=== PATIENT | female | born 1950 | race Caucasian/White ===

== ENCOUNTER 2017-07-14 08:00 | Day surgery (SDC) | payer OTHER ==
[2017-07-08 11:45] VITALS: BMI 23.6
[2017-07-14] MEDS ORDERED: PROPOFOL 20 ML ONE (08:18)
[2017-07-14 09:39] VITALS: TEMP 97.7
[2017-07-14 10:13] VITALS: BP 122/71; PULSE 64
--- NOTE | 2017-07-19 13:06 | PATH ---
Surgical Pathology Report Patient Name: CAROLYN LONDONO [facility] Rec. #: [id number] /Age/Gender: 1950 (Age: 66) / F Account: [id number] Location: [facility] Taken: 07/14/2017 Received: 07/14/2017 Reported: 07/19/2017 Physicians: Farhan Harrington M.D. Specimen(s) Received A: BX PROXIMAL RIGHT COLON B: BX RECTUM Clinical History Preoperative diagnosis: Rule out colon cancer Postoperative diagnosis: Polyps Final Diagnosis A. PROXIMAL COLON, RIGHT, POLYP, BIOPSY: TUBULAR ADENOMA. B. 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 MALIGNANT POLYP MEASURES 1.2 CM. TUMOR IS INVASIVE TO THE SUBMUCOSA (pT1). NO LYMPHOVASCULAR INVASION IDENTIFIED. CAUTERIZED MARGIN IS UNINVOLVED BY CARCINOMA (EXACT DISTANCE CANNOT BE MEASURED IN THIS MATERIAL). SEPARATE FRAGMENT OF TUBULAR ADENOMA (SMALLER POLYP). AJCC STAGE: pT1. Comment: Findings discussed with Dr. Harrington by Dr. Gabriel. Additional studies for Mismatch repair proteins (MMR) are pending and will be reported as an addendum. Electronically Signed Kathleen Moon M.D. Addendum Reported: 07/20/2017 Addendum Diagnosis Immunohistochemical stains for MisMatch Repair Protein Analysis performed at [facility] in [place], [place] ([id number]) and interpreted at [facility] show the following: RESULTS: HMLH-1 INTACT NUCLEAR EXPRESSION HMSH-2 INTACT NUCLEAR EXPRESSION HMSH-6 INTACT NUCLEAR EXPRESSION PMS2 INTACT NUCLEAR EXPRESSION INTERPRETATION: No loss of nuclear expression of MMR proteins: low probability of microsatellite instability-high (MSI-H) Kathleen Moon M.D. Gross Description A. Received in formalin, labeled "proximal right colon" is a cohen, irregular portion of soft tissue measuring 0.6 cm. in greatest dimension. The specimen is submitted in toto in one cassette. B. Received in formalin labeled "rectum," are 2 cohen, polypoid portions of soft tissue measuring 0.6 x 0.5 x 0.3 cm and 1.2 x 0.9 x 0.6 cm. The larger polyp is bisected and the specimen is entirely submitted in 2 cassettes as follows: 1-smaller polyp; 2-larger bisected polyp. 07/15/2017 saudi07/15/2017
== END 2017-07-14 10:10 | disposition home or self-care (01) ==
LOC: FASU-ENDO 08:00
PROVIDERS: ATTEND Internal Medicine Gastroenterology
PROC: 3E0H8GC Introduction of Other Therapeutic Substance into Lower GI, Via Natural or Artificial Opening Endoscopic (ICD-10-PCS; 2017-07-14)
PROC: 0DBP8ZX Excision of Rectum, Via Natural or Artificial Opening Endoscopic, Diagnostic (ICD-10-PCS; principal; 2017-07-14 08:57)
PROC: 0DBK8ZX Excision of Ascending Colon, Via Natural or Artificial Opening Endoscopic, Diagnostic (ICD-10-PCS; 2017-07-14 08:57)
DX: Z12.11 Encounter for screening for malignant neoplasm of colon (principal); D12.2 Benign neoplasm of ascending colon; K57.30 Diverticulosis of large intestine without perforation or abscess without bleeding

== ENCOUNTER 2018-03-13 08:41 | Day surgery (SDC) | payer OTHER ==
[2018-03-08 16:36] VITALS: BMI 21.9
[2018-03-13] MEDS ORDERED: PROPOFOL 20 ML ONE ×2 (09:18)
[2018-03-13] MEDS ORDERED: LIDOCAINE HCL/PF 2% SDV 5ML VIAL ONE (09:19)
[2018-03-13 10:37] VITALS: TEMP 98.4
[2018-03-13 11:04] VITALS: BP 128/68; PULSE 67
== END 2018-03-13 11:10 | disposition home or self-care (01) ==
LOC: FASU-ENDO 08:41
PROVIDERS: ATTEND Internal Medicine Gastroenterology
PROC: 0DJD8ZZ Inspection of Lower Intestinal Tract, Via Natural or Artificial Opening Endoscopic (ICD-10-PCS; principal; 2018-03-13 10:12)
DX: Z85.048 Personal history of other malignant neoplasm of rectum, rectosigmoid junction, and anus (principal); Z86.010 Personal history of colon polyps

== ENCOUNTER 2019-01-15 09:22 | Day surgery (SDC) | payer OTHER ==
[2019-01-10 17:12] VITALS: BMI 22.3
[2019-01-15 11:28] VITALS: TEMP 98.2
[2019-01-15 11:47] VITALS: BP 112/60; PULSE 60
--- NOTE | 2019-01-17 16:22 | PATH ---
Surgical Pathology Report Patient Name: CAROLYN LONDONO [facility]. Rec. #: [id number] /Age/Gender: 1950 (Age: 68) / F Account: [id number] [facility] Taken: 01/15/2019 Received: 01/15/2019 Reported: 01/17/2019 Physicians: Farhan Harrington M.D. Specimen(s) Received BX RECTUM Clinical History History of polyp (malignant) rectum Postoperative diagnosis: Diverticulosis Final Diagnosis RECTUM, BIOPSY: HYPERPLASTIC POLYP. Electronically Signed Holli Gabriel M.D. Gross Description Received in formalin, labeled "biopsy rectum" is a cohen, irregular portion of soft tissue measuring 0.5 cm. in greatest dimension. The specimen is submitted in toto in one cassette. /01/16/201901/16/2019
== END 2019-01-15 11:45 | disposition home or self-care (01) ==
LOC: FASU-ENDO 09:22
PROVIDERS: ATTEND Internal Medicine Gastroenterology
PROC: 0DBP8ZX Excision of Rectum, Via Natural or Artificial Opening Endoscopic, Diagnostic (ICD-10-PCS; principal; 2019-01-15 10:50)
DX: Z85.048 Personal history of other malignant neoplasm of rectum, rectosigmoid junction, and anus (principal); K57.30 Diverticulosis of large intestine without perforation or abscess without bleeding; K62.1 Rectal polyp; K63.5 Polyp of colon
CPT/HCPCS: 88309-TC

== ENCOUNTER 2022-11-29 08:52 | Day surgery (SDC) | payer OTHER ==
[2022-11-26 13:19] VITALS: BMI 23.0
[2022-11-29] MEDS ORDERED: PROPOFOL 60 ML ONE (10:43)
[2022-11-29 12:03] VITALS: BP 151/60; PULSE 70; RESP 19; TEMP 97.6
== END 2022-11-29 12:25 | disposition home or self-care (01) ==
LOC: FASU-ENDO 08:52
PROVIDERS: ATTEND Internal Medicine Gastroenterology
PROC: 0DB98ZX Excision of Duodenum, Via Natural or Artificial Opening Endoscopic, Diagnostic (ICD-10-PCS; 2022-11-29)
PROC: 0DB68ZX Excision of Stomach, Via Natural or Artificial Opening Endoscopic, Diagnostic (ICD-10-PCS; 2022-11-29)
PROC: 0D748DZ Dilation of Esophagogastric Junction with Intraluminal Device, Via Natural or Artificial Opening Endoscopic (ICD-10-PCS; 2022-11-29)
PROC: 0DBP8ZX Excision of Rectum, Via Natural or Artificial Opening Endoscopic, Diagnostic (ICD-10-PCS; principal; 2022-11-29 11:06)
DX: Z12.11 Encounter for screening for malignant neoplasm of colon (principal); R10.13 Epigastric pain; K57.30 Diverticulosis of large intestine without perforation or abscess without bleeding; K62.1 Rectal polyp; K29.50 Unspecified chronic gastritis without bleeding; Z85.038 Personal history of other malignant neoplasm of large intestine; Z86.010 Personal history of colon polyps
CPT/HCPCS: 88305-TC; 88342-TC